=== PATIENT | male | born 1990 | race Asian ===

== ENCOUNTER 2018-03-02 20:12 | Emergency (ER) | payer OTHER ==
[2018-03-02 20:18] VITALS: BP 167/70
--- NOTE | 2018-03-02 20:23 | EDPHY ---
H & P Stated Complaint: BUMP/BITE BACK OF R KNEE, Time Seen by Provider: 03/02/18 20:23 HPI/ROS: CHIEF COMPLAINT: Blood bite back of right knee HISTORY OF PRESENT ILLNESS: The patient presents the ED for evaluation of some mild cellulitis secondary to a bug bite on the back of his right knee. The patient was bit several days ago and has developed some mild surrounding erythema. He denies any fluctuance. He denies any acute neurologic symptoms. He denies additional acute concerns. REVIEW OF SYSTEMS: A comprehensive 10 point review of systems is otherwise negative aside from elements mentioned in the history of present illness. Source: Patient Exam Limitations: No limitations - Personal History Current Tetanus/Diphtheria Vaccine: Unsure Current Tetanus Diphtheria and Acellular Pertussis (TDAP): Unsure - Medical/Surgical History Hx Asthma: No Hx Chronic Respiratory Disease: No Hx Diabetes: No Hx Cardiac Disease: No Hx Renal Disease: No Hx Cirrhosis: No Hx Alcoholism: No Hx HIV/AIDS: No Hx Splenectomy or Spleen Trauma: No Other PMH: DENIES - Social History Smoking Status: Never smoked - Physical Exam Exam: General Appearance: Alert, no distress Eyes: Pupils equal and round no pallor or injection ENT, Mouth: Mucous membranes moist Respiratory: There are no retractions, lungs are clear to auscultation Cardiovascular: Regular rate and rhythm Gastrointestinal: Abdomen is soft and nontender, no masses, bowel sounds normal Neurological: 5/5 strength all 4 extremities Skin: Blood bite behind right knee with surrounding cellulitis approximately 2 cm in size. No fluctuance. No clinical evidence of necrotizing fasciitis Musculoskeletal: Neck is supple nontender Extremities: symmetrical, full range of motion, normal pulses Psychiatric: Patient is oriented X 3, there is no agitation Constitutional: Initial Vital Signs Temperature (C) 37.0 C 03/02/18 20:16 Heart Rate 101 H 03/02/18 20:16 Respiratory Rate 20 03/02/18 20:16 Blood Pressure 167/70 H 03/02/18 20:16 O2 Sat (%) 98 03/02/18 20:16 O2 Delivery Mode Room Air Allergies/Adverse Reactions: shellfish derived [shrimp] Allergy (Verified 03/02/18 20:18) Home Medications: Medication Instructions Recorded NK [No Known Home Meds] 03/02/18 Medical Decision Making ED Course/Re-evaluation: The patient presents to the ED with a superficial cellulitis. He will be discharged home with Bactrim and Keflex. He is advised to return to the ED for increasing pain, redness, swelling or other concerns. Departure - Departure Disposition: Home, Routine, Self-Care Clinical Impression: Cellulitis of right leg Condition: Good Instructions: Cellulitis (ED) Additional Instructions: 1. Take antibiotics as prescribed for next 10 days. 2. Return to the ED for markedly increased pain, redness, swelling or a sensation of any fluid that is collecting behind knee. 3. Apply warm compresses and take soaking baths frequently over the next several days. Referrals: NONE *PRIMARY CARE P,. [Primary Care Provider] - As per Instructions
[2018-03-02] MEDS ORDERED: CEPHALEXIN 500 MG CAP PO ONE (20:31)
[2018-03-02] MEDS ORDERED: SULFAMETHOX/TMP 800/160 MG 1 TAB PO ONE (20:32)
[2018-03-02] MEDS ORDERED: SULFAMET/TMP DS PREPACK#2 BTL TAKEHOME ONE (20:47)
[2018-03-02] MEDS ORDERED: CEPHALEXIN 500MG PREPACK#4 BTL TAKEHOME ONE ×2 (20:47→20:48)
== END 2018-03-02 20:52 | disposition home or self-care (01) ==
DX: S80.861A Insect bite (nonvenomous), right lower leg, initial encounter (principal); L03.115 Cellulitis of right lower limb; W57.XXXA Bitten or stung by nonvenomous insect and other nonvenomous arthropods, initial encounter